=== PATIENT | female | born 1975 | race Caucasian/White ===

== ENCOUNTER 2017-01-24 07:50 | Day surgery (SDC) | payer BC ==
[~2017-01-24] VITALS: Ht 162.6 cm; Wt 93.0 kg
[~2017-01-24 07:50] MED LIST: HYDROCODONE BT1 EACH PO; IBUPROFEN800 MG PO; MECLIZINE HCL25 M3 PO; MELATONIN10 M1 PO; NEXIUM20 MG PO; VALIUM5 MG PO
[2017-01-24] MEDS ORDERED: BACTRIM,SEPT1 TABLET PO (08:28)
[2017-01-24] MEDS ORDERED: FLAGYL500 MG PO (08:28)
[2017-01-24 08:29] VITALS: BP 179/100
[2017-01-24 09:12] VITALS: BP 133/87
[2017-01-24] MEDS ORDERED: IBUPROFEN800 MG PO (12:41)
[2017-01-24] MEDS ORDERED: ENDOCET 5-3251 EACH PO (12:41)
[2017-01-24 13:53] VITALS: BP 126/85
[2017-01-24 14:47] VITALS: BP 157/76
== END 2017-01-24 15:17 | disposition home or self-care (01) ==
LOC: SDC 07:50
PROC: 0UT7FZZ Resection of Bilateral Fallopian Tubes, Via Natural or Artificial Opening With Percutaneous Endoscopic Assistance (ICD-10-PCS; principal; 2017-01-24)
PROC: 0TJ98ZZ Inspection of Ureter, Via Natural or Artificial Opening Endoscopic (ICD-10-PCS; principal; 2017-01-24)
PROC: 0UT9FZZ Resection of Uterus, Via Natural or Artificial Opening With Percutaneous Endoscopic Assistance (ICD-10-PCS; principal; 2017-01-24)
PROC: 0UN94ZZ Release Uterus, Percutaneous Endoscopic Approach (ICD-10-PCS; principal; 2017-01-24)
PROC: 0UTC8ZZ Resection of Cervix, Via Natural or Artificial Opening Endoscopic (ICD-10-PCS; principal; 2017-01-24)
DX: N92.0 Excessive and frequent menstruation with regular cycle (principal); N93.9 Abnormal uterine and vaginal bleeding, unspecified; N94.6 Dysmenorrhea, unspecified; N72 Inflammatory disease of cervix uteri; N80.0 Endometriosis of uterus; N73.6 Female pelvic peritoneal adhesions (postinfective); K21.9 Gastro-esophageal reflux disease without esophagitis; E66.9 Obesity, unspecified; Z68.41 Body mass index [BMI] 40.0-44.9, adult; F17.210 Nicotine dependence, cigarettes, uncomplicated; Z88.1 Allergy status to other antibiotic agents
CPT/HCPCS: 88307; J0131; J0690; J1100; J1170; J1885; J2250; J2405; J2710; J2765; J3010